=== PATIENT | female | born 1935 | race Caucasian/White ===

== ENCOUNTER 2017-02-04 23:08 | Inpatient (IN) | payer OTHER ==
[~2017-02-04] VITALS: Ht 154.9 cm; Wt 141.1 kg
--- NOTE | ~2017-02-04 | EGD ---
EGD REPORT [facility] [address]. [address] NAME: RUBY KRAMER : 35 STATUS : ADM IN PAT#: [id number] AGE: 81 ADM/REG DATE : 02/05/17 MR#: [id number] REPORT SERV DATE: 02/06/17 DICTATED BY: MANUEL ALEXANDRA DATE: 02/06/17 REPORT STATUS : Draft [facility]ANSCRIBED BY: [facility] DATE: 02/06/17 Endoscopy Center Patient Name: Ruby Kramer Date of : 1935 Attending MD: MANUEL ALEXANDRA MD Procedure Date No Time: 02/06/2017 Procedure: Upper GI endoscopy Indications: Melena Referring MD: LARY DESAI MD Medicines: Monitored Anesthesia Care Complications: No immediate complications. Estimated blood loss: Minimal. Procedure: After obtaining informed consent, the endoscope was passed under direct vision. Throughout the procedure, the patient's blood pressure, pulse, and oxygen saturations were monitored continuously. The GIF [id number] was introduced through the mouth, and advanced to the second part of duodenum. The upper GI endoscopy was accomplished without difficulty. The patient tolerated the procedure well. Findings: The examined esophagus was normal. Few non-bleeding cratered gastric ulcers with pigmented material were found in the prepyloric region of the stomach and at the pylorus. The largest lesion was 15 mm in largest dimension. Biopsies were taken with a cold forceps for Helicobacter pylori testing. Estimated blood loss was minimal. The examined duodenum was normal. The cardia and gastric fundus were normal on retroflexion. The exam was otherwise without abnormality. Impression: - Gastric ulcers. Biopsied. - The examination was otherwise normal. Recommendation: - [facility]. - Await pathology results. - NSAID avoidance - Use Protonix (pantoprazole) 40 mg PO BID for 12 weeks; would continue continuous infusion now for another 48 hours prior to switching to BID therapy. - Repeat the upper endoscopy in 3 months to check healing. Procedure Code(s): --- Professional --- EGD REPORT [facility] [address] [place] [address] [place]. [address] NAME: RUBY KRAMER : 35 STATUS : ADM IN [facility]#: [id number] AGE: 81 ADM/REG DATE : 02/05/17 MR#: [id number] REPORT SERV DATE: 02/06/17 DICTATED BY: MANUEL ALEXANDRA DATE: 02/06/17 REPORT STATUS : Draft TRANSCRIBED BY: [employer] DATE: 02/06/17 [id number], Esophagogastroduodenoscopy, flexible, transoral; with biopsy, single or multiple Diagnosis Code(s): --- Professional --- K25.9, Gastric ulcer, unspecified as acute or chronic, without hemorrhage or perforation K92.1, Melena CPT copyright 2013 [employer]. All rights reserved. The codes documented in this report are preliminary and upon promotion officer review may be revised to meet current compliance requirements. Manuel Alexandra MD MANUEL ALEXANDRA MD 02/06/2017 9:58 AM This report has been signed electronically. Number of Addenda: 0 Note Initiated On: 02/06/2017 9:22 AM Scope Withdrawal Time 0 hours 0 minutes 0 seconds [address] [facility] [place] [address]
--- NOTE | ~2017-02-04 | HP ---
History And Physical [facility] [address] [place]. [address] NAME: ASHLEY KRAMER : 35 STATUS : ADM IN [facility]#: [id number] AGE: 81 ADM/REG DATE : 02/05/17 MR#: [id number] REPORT SERV DATE: 02/05/17 DICTATED BY: BERKLEY SNELL DATE: 02/05/17 REPORT STATUS : Draft TRANSCRIBED BY: MODAda DATE: 02/05/17 DATE OF ADMISSION: 02/05/2017 POINT OF ENTRY: Transfer from [facility] Emergency Department. PRIMARY CARE PHYSICIAN: Gilmer Shanks D.O. GI PHYSICIAN: None at this time. CHIEF COMPLAINT: Nausea, vomiting, diarrhea, concerned for GI bleed. HISTORY OF PRESENT ILLNESS: Ms Kramer is an 81-year-old female with history of hypertension, hyperlipidemia, bpj-avewfcb-rpkoamozo diabetes mellitus type 2 as well as diastolic dysfunction, who presents to [facility] Emergency Department for nausea, vomiting, as well as diarrhea. The patient states that she has had some diarrhea for about the past month now. She states that it has been black and tarry for about a week now. She also developed some nausea and vomiting for the past day or two prompting her presentation to the emergency department. She did not notice any blood in her vomit, but at [facility] there was concern for either coffee-ground hematemesis or bright red blood hematemesis. Occult stool was positive. Hemoglobin was 8.0, hematocrit was 26.4, I do not have a recent baseline. BUN 64, creatinine 2.2, also without recent baseline with a potassium of 5.9. She also initially was found to have urinary tract infection, was given Levaquin as well as 80 mg in total of IV Protonix and a liter of normal saline, and transferred to [facility] for higher level of care. The patient currently denies any fevers, night sweats, chills, chest pain, palpitations, abdominal pain, constipation, dysuria. She reports the above-mentioned nausea, vomiting, diarrhea, and black and tarry diarrhea for the past week. REVIEW OF SYSTEMS: Comprehensive review of systems otherwise negative unless listed in history of present illness. PREVIOUS MEDICAL HISTORY: 1. Hypertension. 2. Hyperlipidemia. 3. Iux-rzbeadp-nfjourtjx diabetes mellitus, type 2. 4. Diastolic dysfunction. SURGICAL HISTORY: 1. Back surgery x1. 2. Left total hip. 3. Left total knee. 4. Hysterectomy. History And Physical [address] [address] NAME: ASHLEY KRAMER : [birth year] STATUS : ADM IN PAT#: [id number] AGE: 81 ADM/REG DATE : 02/05/17 MR#: [id number] REPORT SERV DATE: 02/05/17 DICTATED BY: BERKLEY SNELL DATE: 02/05/17 REPORT STATUS : Draft TRANSCRIBED BY: COURTNEY DATE: 02/05/17 5. Shoulder replacement, side unknown. ALLERGIES: TO PENICILLIN, CODEINE, CEPHALOSPORINS, AND SULFA DRUGS. HOME MEDICATIONS: Pending at time of dictation. SOCIAL HISTORY: Denies any tobacco, alcohol, or illicits. FAMILY HISTORY: Notable for father with congestive heart failure. Sibling with history of sudden cardiac in his 40s. LABS AND IMAGING: All obtained from transfer records from [facility] Emergency Department: 1. White count is 13.9, hemoglobin is 8.0, hematocrit is 26.4, and platelet count is 291. INR 1.2. 2. Sodium is 134, potassium 5.9, chloride 102, carbon dioxide 21, BUN 64, creatinine 2.2, glucose is 129, calcium is 8.6, protein 5.9, albumin 2.9, bilirubin 0.2, ALT is 6, AST 12, and alkaline phosphatase is 115. 3. Lactic acid is 13.0, this is within normal range for [facility]. 4. Procalcitonin less than 0.05. 5. Urinalysis: Spec gravity is 1.012, turbid in appearance, positive nitrites with 725 white blood cells per high-powered field. PHYSICAL EXAMINATION: VITAL SIGNS: Temperature is 97.1 degrees Fahrenheit, pulse is 96, respirations 16, saturating 98% on 2 L by nasal cannula, and blood pressure 108/50. GENERAL: The patient is awake and alert, in no acute distress. Resting comfortably in bed. She is a well-developed, well-nourished, elderly obese female. No family is at bedside. She is a somewhat poor historian. HEENT: Atraumatic and normocephalic. Slightly dry mucous membranes. Pupils are equal, round, reactive to light and accommodation. Extraocular eye movements intact. No scleral icterus. NECK: No jugular venous distention. No carotid bruits. CARDIAC: Regular rate and rhythm. No murmurs, rubs, or gallops. Normal S1, S2. LUNGS: Clear to auscultation bilaterally. Does have decreased breath sounds at bases. ABDOMEN: Obese, soft, nontender, and nondistended. Good bowel sounds. No rebound, guarding, or rigidity. EXTREMITIES: Warm and perfused. No cyanosis, clubbing, or edema. SKIN: Warm and dry. PSYCH: Affect appropriate. NEURO: Alert and oriented x3. Cranial nerves 2 through 12 grossly intact. Speech is normal. Gait not assessed. ASSESSMENT AND PLAN: Ms Kramer is an 81-year-old female who presents with nausea, vomiting, and diarrhea, found to have evidence of occult positive stools as well as concern for hematemesis concerning for upper gastrointestinal bleed. PROBLEM LIST: History And Physical [address] [address] NAME: ASHLEY KRAMER : 35 STATUS : ADM IN [facility]#: [id number] AGE: 81 ADM/REG DATE : 02/05/17 MR#: [id number] REPORT SERV DATE: 02/05/17 DICTATED BY: BERKLEY SNELL DATE: 02/05/17 REPORT STATUS : Draft TRANSCRIBED BY: COURTNEY DATE: 02/05/17 1. Upper GI bleed with hematemesis and melena. 2. Urinary tract infection. 3. Leukocytosis. 4. Hyperkalemia. 5. Acute kidney injury versus chronic kidney disease, stage 3. 6. Fjq-dboqggt-uomjuabus diabetes mellitus, type 2. 7. Metabolic acidosis. PLAN: 1. Upper GI bleed with melena and hematemesis. The patient already received Protonix bolus at [facility]. We will continue Protonix drip. Check q.6 hours hemoglobin and hematocrits. Transfuse for hemoglobin less than 7. We will consult Gastroenterology in the morning for likely upper GI and possible lower endoscopy as well. 2. Urinary tract infection. Follow up outside hospital urine culture. Given the patient's multiple antibiotic allergies, we will continue with IV Levaquin. 3. Acute kidney injury versus chronic kidney disease, stage 3. Unknown recent baseline. We will continue IV fluid hydration. Recheck labs in the morning. Avoid nephrotoxic medications. 4. Hyperkalemia. We will repeat labs here and treat as indicated if she has elevated potassium level. 5. Mjp-fubupho-loahewzoq diabetes mellitus, type 2. Holding the patient's oral hypoglycemics, level 2 sliding scale. 6. Metabolic acidosis. Lactic acid was within normal limits at [facility] likely secondary to acute kidney injury versus chronic kidney disease. We will continue to monitor. 7. Anemia, again without recent baseline, but I suspect she does have some component of acute blood loss anemia. We will transfuse for hemoglobin less than 7. 8. DVT prophylaxis. TEDs and SCDs given bleeding. CODE STATUS: The patient wished to be full code. MABLE/MODL Berkley Snell MD / [id number] CC: Madelin Mcleod D.O.
--- NOTE | ~2017-02-04 | DS ---
Discharge Summary [facility] [address] [place]. [address] NAME: ASHLEY KRAMER : 35 STATUS : DIS IN PAT#: [id number] AGE: 81 ADM/REG DATE : 02/05/17 MR#: [id number] REPORT SERV DATE: 02/10/17 DICTATED BY: BA HORTA DATE: 02/09/17 REPORT STATUS : Draft TRANSCRIBED BY: MODL DATE: 02/09/17 ADMISSION DATE: 02/05/2017 DISCHARGE DATE: 02/09/2017 PRINCIPAL DIAGNOSIS: Upper gastrointestinal bleeding with acute blood loss anemia. SECONDARY DIAGNOSES: Cystitis, false-positive blood culture positivity for Staphylococcus hominis, also acute kidney injury, leukocytosis, and metabolic acidosis. HISTORY OF PRESENT ILLNESS: Please see Dr. Leiva's dictation 02/05/2017. HOSPITAL COURSE: Admitted with a GI bleed from [facility], found to have UTI, then cultures were done. Urine culture negative. Blood cultures ended up coming back positive for Staphylococcus hominis. This was felt to be almost universally contaminant in the absence of artificial heart valve. I did confer with Dr. Bui, who felt like this could be ignored. She did complete a course of levofloxacin. Endoscopic evaluation meanwhile was positive for peptic ulcer, which was felt to be secondary to NSAIDs. She tolerated Protonix therapy. Her diet was advanced satisfactorily. She still had difficulty with movement. She claimed that she had 24-hour care with home health. However, we verified it only at 3 hours a day, that she was basically immobile otherwise. She tolerated physical therapy and was transferred to a [facility] facility in [facility] on 02/09/2017. She went there in satisfactory condition with low-salt, low-fat 1500 calorie diet. Activity as tolerated. MEDICATIONS: Discharged otherwise with the following medications; metformin 1000 b.i.d.; Protonix; DuoNeb p.r.n., sliding scale; Januvia; Lyrica; Lopid; Percocet p.r.n.; Celexa; BuSpar; and Levaquin as mentioned. Greater than 30 minutes was spent in the care of this patient's discharge planning on discharge day. JOVANNA/COURTNEY Ba Horta M.D. / [id number] CC: Ba Horta M.D.
--- NOTE | ~2017-02-04 | CN ---
Consultation Report [facility] [address] [place]. [address] NAME: ASHLEY KRAMER : 35 STATUS : ADM IN [facility]#: [id number] AGE: 81 ADM/REG DATE : 02/05/17 MR#: [id number] REPORT SERV DATE: 02/05/17 DICTATED BY: LARY DESAI DATE: 02/05/17 REPORT STATUS : Draft TRANSCRIBED BY: MODAda DATE: 02/05/17 DATE OF CONSULTATION: REASON FOR CONSULTATION: Melena, anemia. CHIEF COMPLAINT: Nausea, vomiting, and black stools. HISTORY OF PRESENT ILLNESS: Ms. Kramer is an 81-year-old morbidly obese white female with past medical history significant for hypertension, diabetes type 2, diastolic dysfunction, prior GI bleed secondary to heavy NSAID use, who presents from [facility] due to nausea, vomiting, and concern for GI bleed given history of melena. She stated that for the past week, she has been having black tarry stool. She endorses three to four tablets of ibuprofen a day in addition to as-needed Advil. She is mostly bedbound, and she takes NSAIDs for arthritis. Per report from [facility], the patient did have an episode of coffee-grounds emesis. She had an occult stool that was positive. Hemoglobin on check here was 6.9. She received one unit of packed red blood cells with appropriate response to 8.3 this morning. She has not had a melenic stool since admission. She has been hemodynamically stable. She also was found to have a urinary tract and was on Levaquin. Prior to her transfer here, she was started on 80 mg of IV Protonix and sent for further care. The patient states that she has had a colonoscopy in [facility] in the past couple of years, she said it was normal. She states that she has had bleeding from gastric ulcers in the past. She is a heavy NSAID user. She denies any hematochezia or hematemesis. She currently has no nausea or vomiting. No chest pain, shortness of breath, fever, or chills. REVIEW OF SYSTEMS: A complete review of systems was obtained and was negative, except for that listed in the HPI. PAST MEDICAL HISTORY: 1. Hypertension. 2. Morbid obesity. 3. Ijb-vknbhtc-sdcmgnius diabetes type 2. 4. Diastolic dysfunction. PAST SURGICAL HISTORY: 1. Hysterectomy. 2. Left total hip. 3. Left total knee. 4. Back surgery. ALLERGIES: PENICILLIN, CODEINE, CEPHALOSPORINS, AND SULFA DRUGS. Consultation Report [facility] [id number] [place]. [address] NAME: ASHLEY KRAMER : 35 STATUS : ADM IN [facility]#: [id number] AGE: 81 ADM/REG DATE : 02/05/17 MR#: [id number] REPORT SERV DATE: 02/05/17 DICTATED BY: LARY DESAI DATE: 02/05/17 REPORT STATUS : Draft TRANSCRIBED BY: COURTNEY DATE: 02/05/17 HOME MEDICATIONS: Not available at this time. The patient does not remember her medications. The patient does endorse taking three to four tablets of ibuprofen and Advil as needed. She is on a medication for diabetes as well as hypertension. SOCIAL HISTORY: The patient is in the room with her son. She lives at home with a automobile brake bonder. No tobacco, alcohol, or illicit drugs. FAMILY HISTORY: No family history of GI cancers. PHYSICAL EXAMINATION: VITAL SIGNS: Temperature was 97.3, blood pressure was 105/50, she was 98% on 2 L oxygen, pulse was 76, respirations 20. GENERAL: The patient is sitting up in bed, in no acute distress, very talkative. She is morbidly obese. HEENT: Pupils anicteric. Extraocular movements intact. Pupils equal to light. Mucous membranes are dry. NECK: Large neck diameter due to obesity. CARDIOVASCULAR: Regular rate and rhythm. No murmurs, rubs, or gallops. CHEST: She has significant expiratory wheezing bilaterally. Otherwise, no rhonchi or crackles. ABDOMEN: She is morbidly obese. Nontender, nondistended. Positive bowel sounds. EXTREMITIES: Peripheral edema bilaterally. NEURO: No focal deficits. PSYCH: Good mood. LABORATORY INVESTIGATION: CBC on admission, white count was 11.9, hemoglobin 6.9, platelets were 259. After one unit of packed red blood cells, her hemoglobin was 8.3, repeat white count was 11. Her potassium is 5.9, her creatinine is 2.3, sodium 139, chloride 108, albumin 2.1, alkaline phosphatase 122, otherwise LFTs normal. IMAGING: Chest x-ray, normal. ASSESSMENT AND PLAN: Ms. Kramer is an 81-year-old morbidly obese, white female with past medical history significant for kka-jgvnqjs-lcayodisq diabetes, hypertension and likely kidney disease, who presents with one week of ongoing melena. She was found to have a hemoglobin of 6.9. She was transferred to [facility] from [facility] for further care. Given this patient's history of heavy NSAID use, this is likely a gastric ulcerative GI bleed. She is currently hemodynamically stable and has had no further episodes of melena since admission. We had planned for an upper endoscopy this Monday morning, but in discussion prior to undergoing procedure with Anesthesia, her potassium of 5.9 as well as diffuse wheezing bilaterally, there was concern for respiratory failure as well as complications from anesthesia. Given her stability and her response to packed red blood cells, it was decided to delay her endoscopy until Monday. Consultation Report [facility] [address] [place]. [address] NAME: ASHLEY KRAMER : 35 STATUS : ADM IN [facility]#: [id number] AGE: 81 ADM/REG DATE : 02/05/17 MR#: [id number] REPORT SERV DATE: 02/05/17 DICTATED BY: LARY DESAI DATE: 02/05/17 REPORT STATUS : Draft TRANSCRIBED BY: COURTNEY DATE: 02/05/17 For now, I would place the patient on a Protonix drip or Protonix 40 mg IV b.i.d. She is okay to have clear liquid diet today. Check hemoglobin every 12 hours. Transfuse packed red blood cells for hemoglobin less than 7. She should always have two large-bore IVs in place while on the floor. Please call us if any hematochezia, hypotension, recurrent melena, or hematemesis occurs. We will plan for EGD tomorrow morning. Thank you for this consultation. Please let us know if there are any questions. RAOUL/COURTNEY Lary Desai MD / [id number] CC: Angel Zuleta M.D.
[2017-02-05 02:28] LABS: BASOPHILS 0.1 %; BASOPHILS ABSOLUTE 0.01 10/3/uL (0.0-0.16); EOSINOPHILS 1.5 %; EOSINOPHILS ABSOLUTE 0.18 10/3/uL (0.0-0.53); HEMATOCRIT 21.3 % (36.0-48.0); HEMOGLOBIN 6.9 g/dL (12.0-16.0); IMMATURE GRANULOCYTES 0.5 %; IMMATURE GRANULOCYTES ABSOLUTE 0.06 10/3/uL (0.0-0.11); LYMPHOCYTES 13.9 %; LYMPHOCYTES ABSOLUTE 1.66 10/3/uL (0.67-4.30); MEAN CORPUS HGB CONC 32.4 g/dL (32.0-36.0); MEAN CORPUSCULAR VOLUME 92.6 fL (80-100); MEAN PLATELET VOLUME 10.1 fL (9.2-13.0); MONOCYTES 2.8 %; MONOCYTES ABSOLUTE 0.33 10/3/uL (0.21-1.20); NEUTROPHILS 81.2 %; PLATELET COUNT 259 10/3/uL (150-400); WHITE BLOOD CELLS 11.9 10/3/uL (4.5-10.5)
[2017-02-05 02:29] LABS: MANUAL DIFF NO %
[2017-02-05 02:36] LABS: INTERNATIONAL NORMAL RATI 1.4 UNITS (-)
[2017-02-05 02:45] LABS: A/G RATIO 0.5 (0.7-1.9); ALBUMIN 2.1 G/DL (3.5-5.0); ALKALINE PHOSPHATASE 122 U/L (45-117); BUN (BLOOD UREA NITROGEN) 76 MG/DL (6-23); CHLORIDE, SERUM 108 MMOL/L (96-112); CO2 (CARBON DIOXIDE) 22 MMOL/L (24-34); CREATININE 2.31 MG/DL (0.55-1.02); GFR AFRICAN AMERICAN 22 ML/MIN (>=60); GFR NON AFRICAN AMERICAN 19 ML/MIN (>=60); GLUCOSE, SERUM 138 MG/DL (60-99); POTASSIUM, SERUM 5.9 MMOL/L (3.5-5.3); SGOT(AST) 12 U/L (5-40); SGPT(ALT) 9 U/L (5-65); SODIUM, SERUM 139 MMOL/L (135-148); TOTAL BILIRUBIN 0.2 MG/DL (0-1.2); TOTAL PROTEIN 6.1 G/DL (6.0-8.5)
[2017-02-05 08:32] LABS: BASOPHILS 0.1 %; BASOPHILS ABSOLUTE 0.01 10/3/uL (0.0-0.16); EOSINOPHILS 1.4 %; EOSINOPHILS ABSOLUTE 0.15 10/3/uL (0.0-0.53); IMMATURE GRANULOCYTES 0.5 %; IMMATURE GRANULOCYTES ABSOLUTE 0.06 10/3/uL (0.0-0.11); LYMPHOCYTES 16.3 %; LYMPHOCYTES ABSOLUTE 1.79 10/3/uL (0.67-4.30); MEAN CORPUSCULAR HEMOGLOB 28.1 pg (26.0-34.0); MEAN CORPUSCULAR VOLUME 92.2 fL (80-100); MEAN PLATELET VOLUME 9.8 fL (9.2-13.0); MONOCYTES 6.4 %; NEUTROPHILS 75.3 %; NEUTROPHILS ABSOLUTE 8.26 10/3/uL (2.02-8.40); PLATELET COUNT 186 10/3/uL (150-400)
[2017-02-05 08:36] LABS: HEMATOCRIT 27.2 % (36.0-48.0); HEMOGLOBIN 8.3 g/dL (12.0-16.0); MANUAL DIFF NO %; MEAN CORPUS HGB CONC 30.5 g/dL (32.0-36.0); RBC DISTRIBUTION WIDTH 19.4 % (12.0-16.0); RED CELL COUNT 2.95 10/6/uL (4.0-5.6)
[2017-02-05 08:41] LABS: ALBUMIN 2.1 G/DL (3.5-5.0); CALCIUM, SERUM 8.2 MG/DL (8.5-10.4); CHLORIDE, SERUM 112 MMOL/L (96-112); CO2 (CARBON DIOXIDE) 19 MMOL/L (24-34); GFR AFRICAN AMERICAN 24 ML/MIN (>=60); GFR NON AFRICAN AMERICAN 20 ML/MIN (>=60); GLUCOSE, SERUM 141 MG/DL (60-99); PHOSPHORUS, SERUM 4.7 MG/DL (2.5-4.5); POTASSIUM, SERUM 5.2 MMOL/L (3.5-5.3); SODIUM, SERUM 140 MMOL/L (135-148)
[2017-02-05 08:42] LABS: BUN (BLOOD UREA NITROGEN) 82 MG/DL (6-23)
[2017-02-05] MEDS ORDERED: JANUVIA25 MG PO (12:21)
[2017-02-05] MEDS ORDERED: LOPID6 PO (12:21)
[2017-02-05] MEDS ORDERED: L20 PO (12:21)
[2017-02-05] MEDS ORDERED: PERCOCET 10/3251 TAB PO (12:22)
[2017-02-05] MEDS ORDERED: GLUCPH PO (12:22)
[2017-02-05] MEDS ORDERED: VOLT50 PO (12:22)
[2017-02-05] MEDS ORDERED: LYRICA75 PO (12:22)
[2017-02-05] MEDS ORDERED: LOP50 PO (12:22)
[2017-02-05] MEDS ORDERED: MACROBID PO (12:23)
[2017-02-05] MEDS ORDERED: CELEXA40 MG PO (12:23)
[2017-02-05] MEDS ORDERED: BUSPAR10 PO (12:23)
[2017-02-05 14:14] LABS: HEMOGLOBIN 7.4 g/dL (12.0-16.0)
[2017-02-05 14:18] LABS: HEMATOCRIT 22.4 % (36.0-48.0)
[2017-02-05 19:24] LABS: HEMATOCRIT 21.8 % (36.0-48.0); HEMOGLOBIN 7.1 g/dL (12.0-16.0)
[2017-02-06 02:09] LABS: HEMOGLOBIN 6.3 g/dL (12.0-16.0)
[2017-02-06 08:54] LABS: BASOPHILS 0.1 %; BASOPHILS ABSOLUTE 0.01 10/3/uL (0.0-0.16); EOSINOPHILS 2.8 %; EOSINOPHILS ABSOLUTE 0.22 10/3/uL (0.0-0.53); IMMATURE GRANULOCYTES 1.1 %; IMMATURE GRANULOCYTES ABSOLUTE 0.09 10/3/uL (0.0-0.11); LYMPHOCYTES 17.4 %; LYMPHOCYTES ABSOLUTE 1.39 10/3/uL (0.67-4.30); MEAN CORPUSCULAR HEMOGLOB 29.1 pg (26.0-34.0); MEAN CORPUSCULAR VOLUME 89.6 fL (80-100); MEAN PLATELET VOLUME 9.9 fL (9.2-13.0); MONOCYTES 4.3 %; MONOCYTES ABSOLUTE 0.34 10/3/uL (0.21-1.20); NEUTROPHILS 74.3 %; NEUTROPHILS ABSOLUTE 5.92 10/3/uL (2.02-8.40); PLATELET COUNT 224 10/3/uL (150-400); RBC DISTRIBUTION WIDTH 18.4 % (12.0-16.0); RED CELL COUNT 2.78 10/6/uL (4.0-5.6)
[2017-02-06 08:57] LABS: HEMATOCRIT 24.9 % (36.0-48.0); HEMOGLOBIN 8.1 g/dL (12.0-16.0); MANUAL DIFF NO %; MEAN CORPUS HGB CONC 32.5 g/dL (32.0-36.0)
[2017-02-06 09:00] LABS: INTERNATIONAL NORMAL RATI 1.5 UNITS (-); PARTIAL THROMBO TIME 35.6 SEC (22.5-37.2); PROTIME (NOT ORD) 17.5 SEC (12.0-14.5)
[2017-02-06 09:09] LABS: BUN (BLOOD UREA NITROGEN) 79 MG/DL (6-23); CALCIUM, SERUM 8.4 MG/DL (8.5-10.4); CHLORIDE, SERUM 110 MMOL/L (96-112); CO2 (CARBON DIOXIDE) 19 MMOL/L (24-34); CREATININE 2.09 MG/DL (0.55-1.02); GFR AFRICAN AMERICAN 25 ML/MIN (>=60); GFR NON AFRICAN AMERICAN 22 ML/MIN (>=60); GLUCOSE, SERUM 113 MG/DL (60-99); POTASSIUM, SERUM 4.6 MMOL/L (3.5-5.3); SODIUM, SERUM 141 MMOL/L (135-148)
[2017-02-06 14:19] LABS: HEMATOCRIT 23.8 % (36.0-48.0); HEMOGLOBIN 8.1 g/dL (12.0-16.0)
[2017-02-07 01:18] LABS: BASOPHILS 0.1 %; BASOPHILS ABSOLUTE 0.01 10/3/uL (0.0-0.16); EOSINOPHILS 1.6 %; EOSINOPHILS ABSOLUTE 0.16 10/3/uL (0.0-0.53); HEMATOCRIT 22.1 % (36.0-48.0); HEMOGLOBIN 7.3 g/dL (12.0-16.0); IMMATURE GRANULOCYTES 0.8 %; IMMATURE GRANULOCYTES ABSOLUTE 0.08 10/3/uL (0.0-0.11); LYMPHOCYTES 12.9 %; LYMPHOCYTES ABSOLUTE 1.31 10/3/uL (0.67-4.30); MEAN CORPUSCULAR HEMOGLOB 29.2 pg (26.0-34.0); MEAN CORPUSCULAR VOLUME 88.4 fL (80-100); MEAN PLATELET VOLUME 9.3 fL (9.2-13.0); MONOCYTES 3.4 %; MONOCYTES ABSOLUTE 0.35 10/3/uL (0.21-1.20); NEUTROPHILS 81.2 %; NEUTROPHILS ABSOLUTE 8.28 10/3/uL (2.02-8.40); PLATELET COUNT 212 10/3/uL (150-400); RBC DISTRIBUTION WIDTH 18.5 % (12.0-16.0); WHITE BLOOD CELLS 10.2 10/3/uL (4.5-10.5)
[2017-02-07 01:20] LABS: MANUAL DIFF NO %
[2017-02-07 01:28] LABS: INTERNATIONAL NORMAL RATI 1.6 UNITS (-); PROTIME (NOT ORD) 18.5 SEC (12.0-14.5)
[2017-02-07 01:35] LABS: A/G RATIO 0.6 (0.7-1.9); ALBUMIN 2.1 G/DL (3.5-5.0); ALKALINE PHOSPHATASE 101 U/L (45-117); BUN (BLOOD UREA NITROGEN) 68 MG/DL (6-23); CALCIUM, SERUM 7.9 MG/DL (8.5-10.4); CHLORIDE, SERUM 108 MMOL/L (96-112); CO2 (CARBON DIOXIDE) 22 MMOL/L (24-34); CREATININE 1.89 MG/DL (0.55-1.02); GFR AFRICAN AMERICAN 28 ML/MIN (>=60); GFR NON AFRICAN AMERICAN 24 ML/MIN (>=60); GLOBULIN 3.6 G/DL (2.5-4.1); GLUCOSE, SERUM 126 MG/DL (60-99); POTASSIUM, SERUM 4.2 MMOL/L (3.5-5.3); SGOT(AST) 10 U/L (5-40); SGPT(ALT) 7 U/L (5-65); SODIUM, SERUM 143 MMOL/L (135-148); TOTAL BILIRUBIN 0.2 MG/DL (0-1.2); TOTAL PROTEIN 5.7 G/DL (6.0-8.5)
[2017-02-07 07:07] LABS: HEMATOCRIT 21.9 % (36.0-48.0); HEMOGLOBIN 7.2 g/dL (12.0-16.0)
[2017-02-07 13:45] LABS: HEMATOCRIT 26.5 % (36.0-48.0); HEMOGLOBIN 8.6 g/dL (12.0-16.0)
[2017-02-08 10:44] LABS: BASOPHILS 0.1 %; BASOPHILS ABSOLUTE 0.01 10/3/uL (0.0-0.16); EOSINOPHILS 2.4 %; EOSINOPHILS ABSOLUTE 0.29 10/3/uL (0.0-0.53); HEMATOCRIT 27.4 % (36.0-48.0); HEMOGLOBIN 8.8 g/dL (12.0-16.0); IMMATURE GRANULOCYTES 0.7 %; IMMATURE GRANULOCYTES ABSOLUTE 0.09 10/3/uL (0.0-0.11); LYMPHOCYTES 7.7 %; LYMPHOCYTES ABSOLUTE 0.94 10/3/uL (0.67-4.30); MANUAL DIFF NO %; MEAN CORPUS HGB CONC 32.1 g/dL (32.0-36.0); MEAN CORPUSCULAR HEMOGLOB 28.3 pg (26.0-34.0); MEAN CORPUSCULAR VOLUME 88.1 fL (80-100); MEAN PLATELET VOLUME 9.4 fL (9.2-13.0); MONOCYTES 4.3 %; MONOCYTES ABSOLUTE 0.52 10/3/uL (0.21-1.20); NEUTROPHILS 84.8 %; NEUTROPHILS ABSOLUTE 10.37 10/3/uL (2.02-8.40); PLATELET COUNT 236 10/3/uL (150-400); RBC DISTRIBUTION WIDTH 20.5 % (12.0-16.0); RED CELL COUNT 3.11 10/6/uL (4.0-5.6); WHITE BLOOD CELLS 12.2 10/3/uL (4.5-10.5)
[2017-02-08 11:07] LABS: % IRON SAT 13 % (20-50); CALCIUM, SERUM 8.6 MG/DL (8.5-10.4); CHLORIDE, SERUM 113 MMOL/L (96-112); CO2 (CARBON DIOXIDE) 19 MMOL/L (24-34); CREATININE 1.65 MG/DL (0.55-1.02); FERRITIN 93 NG/ML (8-252); GFR AFRICAN AMERICAN 33 ML/MIN (>=60); GFR NON AFRICAN AMERICAN 29 ML/MIN (>=60); GLUCOSE, SERUM 118 MG/DL (60-99); IRON BINDING CAPACITY 277 MCG/DL (225-410); IRON, SERUM 37 MCG/DL (35-150); POTASSIUM, SERUM 4.1 MMOL/L (3.5-5.3); SODIUM, SERUM 141 MMOL/L (135-148)
[2017-02-08 11:09] LABS: BUN (BLOOD UREA NITROGEN) 44 MG/DL (6-23)
[2017-02-08 16:23] LABS: HEMATOCRIT 27.7 % (36.0-48.0); HEMOGLOBIN 8.7 g/dL (12.0-16.0)
[2017-02-09 06:46] LABS: HEMATOCRIT 26.1 % (36.0-48.0); HEMOGLOBIN 8.5 g/dL (12.0-16.0)
== END 2017-02-09 20:52 | DRG 378 ==
LOC: ENRESERV → ENRESERVDT → ENRESERVTM → 7NO 02-05 00:36
PROVIDERS: Hospitalist; Internal Medicine; Internal Medicine Gastroenterology; Nurse Practitioner Family
PROC: 30233N1 Transfusion of Nonautologous Red Blood Cells into Peripheral Vein, Percutaneous Approach (ICD-10-PCS; 2017-02-06)
PROC: 0DB68ZX Excision of Stomach, Via Natural or Artificial Opening Endoscopic, Diagnostic (ICD-10-PCS; principal; 2017-02-06 09:30)
DX: K25.4 Chronic or unspecified gastric ulcer with hemorrhage (principal); N17.9 Acute kidney failure, unspecified; E87.2 Acidosis; E11.22 Type 2 diabetes mellitus with diabetic chronic kidney disease; D62 Acute posthemorrhagic anemia; Z68.43 Body mass index [BMI] 50.0-59.9, adult; E87.5 Hyperkalemia; N18.3 Chronic kidney disease, stage 3 (moderate); N30.90 Cystitis, unspecified without hematuria; Z79.84 Long term (current) use of oral hypoglycemic drugs; E66.01 Morbid (severe) obesity due to excess calories
CPT/HCPCS: 36415; 36600; 71010; 80048; 80053; 80069; 82728; 82962; 83540; 83550; 83605; 83735; 84132; 85014; 85018; 85025; 85610; 85730; 86850; 86900; 86901; 86920; 88305; 88342; 93005; 94640; 97162-GP; A9270-GY; C9113; J0610; J1170; J1750; J1940; J1956; J2370; P9016